=== PATIENT | male | born 1965 | race Two or more races ===

== ENCOUNTER 2019-02-16 22:22 | Emergency (ER) ==
[~2019-02-16] VITALS: Ht 165.1 cm; Wt 75.3 kg
[2019-02-17 00:07] VITALS: BP 92/56
--- NOTE | 2019-02-17 00:07 | NUR ---
Patient is resting comfortably in bed with eyes closed. Easily aroused. VSS
--- NOTE | 2019-02-17 02:59 | NUR ---
Patient discharged to home in stable condition. Written and verbal after care instructions given. Patient verbalizes understanding of instruction. pt aox4, pt wheelchaired himself out to waiting room with personal wheel chair. pt left without discharge instructions.
== END 2019-02-17 02:59 | disposition home or self-care (01) ==
LOC: ER 22:27
DX: F10.129 Alcohol abuse with intoxication, unspecified (principal); E11.9 Type 2 diabetes mellitus without complications; Y90.9 Presence of alcohol in blood, level not specified
CPT/HCPCS: 82962-TC

== ENCOUNTER 2019-10-17 01:10 | Emergency (ER) | payer MEDICAID ==
[~2019-10-17] VITALS: Ht 170.2 cm; Wt 80.3 kg
--- NOTE | 2019-10-17 03:00 | NUR ---
Patient is resting comfortably in bed with eyes closed. Easily aroused. VSS. -SOB AOX.4 SLEEPING
--- NOTE | 2019-10-17 06:17 | NUR ---
Patient is resting comfortably in bed with eyes closed. Easily aroused. VSS
--- NOTE | 2019-10-17 08:51 | NUR ---
pt sleeping, arousable and verbal. on monitor. vss. will continue to monitor.
--- NOTE | 2019-10-17 10:38 | NUR ---
PT AMBULATES W/ STEADY GAIT. REFUSED FOOD TRAY BUT ASK FOR ORAL FLUIDS. PT SIGNED HOMELESS WAIVER BUT REFUSED REFFERALS. MEDICALLY CLEARED. D/C IN STABLE CONDITION.
[2019-10-17 10:40] VITALS: BP 125/80
--- NOTE | 2019-10-17 10:44 | NUR ---
PASTING INSPECTOR received a call from ED RN Neftali regarding homeless discharge. Upon chart review and MD notes, patient is a 54-year-old male who presented to the emergency department acutely intoxicated. Apparently bystander called EMS as the patient was intoxicated. PASTING INSPECTOR attempted to meet with the pt., however, pt declined to speak to PASTING INSPECTOR and refused all resources. Pt. signed Homeless Patient waiver form and was placed in pt's chart. No other social service needs are requested at this time.
== END 2019-10-17 10:40 | disposition home or self-care (01) ==
LOC: ER 01:10
DX: F10.129 Alcohol abuse with intoxication, unspecified (principal); E11.9 Type 2 diabetes mellitus without complications; Y90.9 Presence of alcohol in blood, level not specified; Z59.0 Homelessness
CPT/HCPCS: 82962-TC

== ENCOUNTER 2019-10-19 02:00 | Emergency (ER) | payer MEDICAID ==
[~2019-10-19] VITALS: Ht 170.2 cm; Wt 79.4 kg
--- NOTE | 2019-10-19 02:09 | NUR ---
PT BIB EMS C/O GENRALIZED BODY PAIN, ETOH. PLACED ON MONITOR AND PULSE OX. VSS.
--- NOTE | 2019-10-19 02:22 | NUR ---
VSS. BLANKETS PROVIDED.
[2019-10-19] MEDS ORDERED: DEXAMETHASONE SOD PHOSPHATE 10 MG/ML VIAL IV ONE (02:30)
[2019-10-19] MEDS ORDERED: KETOROLAC TROMETHAMINE INJ 30 MG/ML VIAL IV ONE (02:30)
[2019-10-19] MEDS ORDERED: DEXAMETHASONE SOD PHOSPHATE 10 MG/ML VIAL ONE (02:32)
[2019-10-19] MEDS ORDERED: KETOROLAC TROMETHAMINE INJ 30 MG/ML VIAL ONE (02:34)
--- NOTE | 2019-10-19 05:24 | NUR ---
PT ASLEEP, NO ACUTE DISTRESS NOTED, RESP EVEN AND UNLABORED. CALL LIGHT WITHIN REACH. WILL CONTINUE TO MONITOR PT CLOSELY.
--- NOTE | 2019-10-19 05:49 | NUR ---
PT AAOX4 AMBULATORY TO THE BATHROOM WITH STEADY GAIT NOTED.
--- NOTE | 2019-10-19 06:21 | NUR ---
PT AAOX4 NO ACUTE DISTRESS NOTED, RESP EVEN AND UNLABORED. PT AMBULATORY WITH STEADY GAIT NOTED.
[2019-10-19 06:22] VITALS: BP 133/69
== END 2019-10-19 07:09 | disposition home or self-care (01) ==
LOC: ER 02:00
DX: F10.10 Alcohol abuse, uncomplicated (principal); E11.9 Type 2 diabetes mellitus without complications; Y90.9 Presence of alcohol in blood, level not specified
CPT/HCPCS: J1100; J1885

== ENCOUNTER 2020-03-30 19:41 | Emergency (ER) | payer MEDICAID, OTHER ==
[~2020-03-30] VITALS: Ht 172.7 cm; Wt 82.6 kg
--- NOTE | 2020-03-30 19:56 | NUR ---
PT BIBRA 860 C/O ETOH. FOUND IN [place] BY SECURITY WITH A WHISKEY BOTTLE. PT PLACED IN BED 13, ON MONITOR AND PULSE OX. VSS. NO ACUTE DISTRESS NOTED. AWAITING MD FOR EVAL.
--- NOTE | 2020-03-30 20:00 | NUR ---
PA AT BEDSIDE FOR EVAL.
--- NOTE | 2020-03-30 20:00 | NUR ---
EMT AT BEDSIDE FOR BLOOD SUGAR CHECK.
--- NOTE | 2020-03-30 20:12 | NUR ---
BROUGHT TO CT
--- NOTE | 2020-03-30 20:14 | NUR ---
BROUGHT BACK FROM CT
--- NOTE | 2020-03-30 21:00 | NUR ---
PT BEING VERBALLY AGRESSIVE.
[2020-03-30] MEDS ORDERED: OLANZAPINE 10 MG VIAL IM ONE (21:01)
[2020-03-30] MEDS ORDERED: LORAZEPAM INJ 2 MG/ML VIAL ONE (21:02)
[2020-03-30] MEDS: OLANZAPINE 10 MG VIAL IM ONE (21:07)
[2020-03-30] MEDS: LORAZEPAM INJ 2 MG/ML VIAL IM ONE (21:07)
--- NOTE | 2020-03-30 21:08 | NUR ---
MEDICATED PER VICK PRICE'S ORDER, PT JUAN CARLOS WELL. RICKEY @ BS & WILL CONT TO MONITOR.
[2020-03-30 21:13] LABS: BASOPHILS % (AUTO) 1.3 % (0.0-2.0); EOSINOPHILS % (AUTO) 1.6 % (0.0-6.0); HEMATOCRIT 27 % (39-51); HEMOGLOBIN 8.5 g/dL (13.5-17.5); LYMPHOCYTES # (AUTO) 0.6 /CMM (0.8-4.8); LYMPHOCYTES % (AUTO) 31.6 % (20.0-44.0); MEAN CORPUSCULAR HGB CONC 31 g/dl (31.0-36.0); MEAN CORPUSCULAR VOLUME 85 fL (80-96); MONOCYTES # (AUTO) 0.2 /CMM (0.1-1.30); MONOCYTES % (AUTO) 11.3 % (2.0-12.0); NEUTROPHILS % (AUTO) 54.2 % (43.0-81.0); PLATELET COUNT (AUTO) 73 /CMM (150-450); RED BLOOD CELL COUNT(AUTO) 3.22 MIL/uL (4.5-6.0)
[2020-03-30 21:19] LABS: CALCIUM, SERUM 7.1 mg/dL (8.5-10.1); CARBON DIOXIDE 26 mmol/L (21-32); CHLORIDE 110 mmol/L (98-107); CREATININE 0.8 mg/dL (0.6-1.3); GLUCOSE 98 mg/dL (74-106); POTASSIUM 3.4 mmol/L (3.5-5.1); SODIUM SERUM 145 mmol/L (136-145); UREA NITROGEN, BLOOD 10 mg/dL (7-18)
[2020-03-30 21:23] LABS: ALANINE AMINOTRANSFERASE 49 U/L (12-78); ALBUMIN 2.9 g/dL (3.4-5.0); ALCOHOL, BLOOD 435 mg/dL (0-0); ALKALINE PHOSPHATASE 245 U/L (46-116); ASPARTATE AMINOTRANSFERASE 98 U/L (15-37); BILIRUBIN,DIRECT 0.2 mg/dL (0.0-0.2); BILIRUBIN,TOTAL 0.4 mg/dL (0.2-1.0); TOTAL PROTEIN, SERUM 7.1 g/dL (6.4-8.2)
[2020-03-30 21:24] LABS: ACETAMINOPHEN 0 ug/ml (10-30); SALICYLATE < 0.2 mg/dL (2.8-20.0)
[2020-03-30] MEDS: IV NS 0.9% 1,000 ML BAG IV ONE (21:24)
[2020-03-30 21:40] LABS: WHITE BLOOD COUNT (AUTO) 1.8 K/uL (4.3-11.0)
[2020-03-30 21:41] LABS: EOSINOPHILS % (MANUAL) 1 % (0-4); LYMPHOCYTES % (MANUAL) 33 % (16-48); MONOCYTES % (MANUAL) 10 % (0-11.0); NEUTROPHILS % (MANUAL) 56 (42-76)
[2020-03-30] MEDS: FOLIC ACID 1 MG TABLET PO ONE (22:45)
[2020-03-30] MEDS ORDERED: FOLIC ACID 1 MG TABLET ONE (22:50)
[2020-03-30] MEDS ORDERED: THIAMINE HCL 100 MG TABLET ONE (22:50)
[2020-03-30] MEDS: MULTIVITAMINS,THERAGRAN 1 UDTAB TABLET PO ONE (23:00)
[2020-03-30] MEDS: THIAMINE HCL 100 MG TABLET PO ONE (23:00)
[2020-03-30] MEDS: MULTIVITAMINS,THERAGRAN 1 UDTAB TABLET ONE (23:21)
--- NOTE | 2020-03-30 23:40 | NUR ---
urine collected. sent to lab
[2020-03-30 23:51] LABS: APPEARANCE,URINE CLEAR (CLEAR); BILIRUBIN,URINE NEGATIVE (NEGATIVE); BLOOD, URINE NEGATIVE Ery/uL (NEGATIVE); COLOR,URINE YELLOW (YELLOW); KETONES,URINE NEGATIVE (NEGATIVE); LEUKOCYTE ESTERASE ,URINE NEGATIVE (NEGATIVE); NITRITE, URINE NEGATIVE (NEGATIVE); PROTEIN,URINE NEGATIVE (NEGATIVE); UGLUCOSE NEGATIVE (NEGATIVE); UROBILINOGEN,URINE 0.2 EU/dL (0.2)
--- NOTE | 2020-03-31 00:12 | NUR ---
PT RESTING COMFORTABLY IN BED. VSS. NO ACUTE DISTRESS NOTED. SITTER AT BEDSIDE FOR SAFETY
--- NOTE | 2020-03-31 01:39 | NUR ---
pt asleep. provided with urine sample.
--- NOTE | 2020-03-31 03:08 | NUR ---
PT SLEEPING COMFORTABLY IN BED. VSS. NO ACUTE DISTRESS NOTED. SITTER AT BEDSIDE FOR SAFETY
--- NOTE | 2020-03-31 05:16 | NUR ---
PT RESTING COMFORTABLY IN BED. VSS. NO ACUTE DISTRESS NOTED. SITTER AT BEDSIDE FOR SAFETY
--- NOTE | 2020-03-31 06:18 | NUR ---
FLIP BEAVER AT BEDSIDE FOR EVAL.
--- NOTE | 2020-03-31 06:48 | NUR ---
YOSVANY ALVAREZW UNABLE TO EVALUATE PT AT THIS TIME.
--- NOTE | 2020-03-31 07:11 | NUR ---
PT RESTING COMFORTABLY IN BED. VSS. NO ACUTE DISTRESS NOTED. SITTER AT BEDSIDE FOR SAFETY
--- NOTE | 2020-03-31 09:10 | NUR ---
Patient given written and verbal discharge instructions. Patient verbalizes understanding of instructions. Patient is ambulatory with steady gait. Refuses offer of group home placement. Patient given list of available shelters in surrounding area. All belongings returned to patient, name band removed, in proper clothing upon discharge. Ambulates in steady gait.
[2020-03-31 09:12] VITALS: BP 121/67
== END 2020-03-31 09:12 | disposition home or self-care (01) ==
LOC: ER 19:54
DX: S09.8XXA Other specified injuries of head, initial encounter (principal); F10.129 Alcohol abuse with intoxication, unspecified; R45.851 Suicidal ideations; D61.818 Other pancytopenia; E11.9 Type 2 diabetes mellitus without complications; W19.XXXA Unspecified fall, initial encounter; Y93.89 Activity, other specified; Y92.89 Other specified places as the place of occurrence of the external cause; Y99.8 Other external cause status; Y90.8 Blood alcohol level of 240 mg/100 ml or more
CPT/HCPCS: 36415; 70450; 70486; 72125; 80048; 80076; 80305; 80307; 80329; 81001; 82962; 85025; 96372 ×2; 99285; G0480; J2060; J3490; J7030 ×2; 81000-TC